=== PATIENT | female | born 1970 | race Caucasian/White ===

== ENCOUNTER 2019-03-11 06:47 | Day surgery (SDC) | payer BC, OTHER ==
[~2019-03-11 06:47] MED LIST: Lactated Ringers 1,000 ML IV SCH; Sodium Chloride 0.9% 10 ML Syringe FLUSH PRN
[2019-03-11] MEDS ORDERED: Propofol 200 MG/20 ML SDV IV ONE (06:48)
[2019-03-11] MEDS ORDERED: Lidocaine 1% PF 2 ML SDV INJECT ONE (06:48)
--- NOTE | 2019-03-11 08:26 | PCM.OPNOTE ---
- General Post-Op/Procedure Note Date of Surgery/Procedure: 03/11/19 Operative Procedure(s): c scope with biopsy Findings: transverse colon polyp Pre Op Diagnosis: screening Post-Op Diagnosis: colon polyp Anesthesia Technique: MAC Primary Surgeon: Luis Arevalo Anesthesia Provider: Mat Bains Pathology: transverse colon polyp Complications: None Condition: Good Free Text/Narrative:: see dictation
--- NOTE | 2019-03-11 10:22 | OR ---
DATE OF OPERATION: 03/11/2019 SURGEON: Luis Arevalo MD PROCEDURE PERFORMED: Colonoscopy with cold forceps biopsy. PREOPERATIVE DIAGNOSIS: Need for screening C-scope. POSTOPERATIVE DIAGNOSIS: Transverse colon polyp. INDICATIONS FOR PROCEDURE: This is a 48-year-old white female who presents for initial screening colonoscopy, she is without symptoms. DESCRIPTION OF PROCEDURE: After an excellent IV sedation was administered, digital rectal exam was performed. No marked abnormality was noted. Flexible colonoscope inserted, advanced to the cecum. The prep was excellent. The following findings were noted. Ascending colon, unremarkable. Transverse colon, proximal portion of this part of the colon, a small 2 mm lesion appearing consistent with a possible early adenomatous polyp, biopsied, submitted for permanent. Descending colon, unremarkable. Sigmoid, unremarkable. Rectum and anus, unremarkable. Colon was deflated as the scope was removed. Patient tolerated the procedure well, was taken to recovery in good condition. Results by letter. /[id number] SUZY/RYAN
== END 2019-03-11 09:10 | disposition home or self-care (01) ==
LOC: FB.SDS 06:47
PROVIDERS: ATTEND Surgery
DX: Z12.11 Encounter for screening for malignant neoplasm of colon (principal); D12.3 Benign neoplasm of transverse colon
CPT/HCPCS: 81025; 88305; J2001; J2704; J7120

== ENCOUNTER 2024-10-03 08:25 | Day surgery (SDC) | payer BC ==
[2024-10-03] MEDS ORDERED: Lidocaine 2% 100 MG/5 ML Syringe IVPUSH ONE (08:26)
[2024-10-03] MEDS ORDERED: Midazolam 1 MG/ML 2 ML SDV IV ONE (08:26)
[2024-10-03] MEDS ORDERED: Propofol 200 MG/20 ML SDV IV ONE (08:26)
[2024-10-03] MEDS ORDERED: Sodium Chloride 0.9% 10 ML Syringe FLUSH PRN (08:30)
[2024-10-03] MEDS: Lactated Ringers 1,000 ML IV SCH (09:12)
[2024-10-03] MEDS: Simethicone Drops 40 MG/0.6 ML 30 ML Bottle ONE (10:53)
== END 2024-10-03 11:58 | disposition home or self-care (01) ==
LOC: FB.SDS 08:25
PROVIDERS: ATTEND Surgery
DX: Z12.11 Encounter for screening for malignant neoplasm of colon (principal); Q43.8 Other specified congenital malformations of intestine; Z86.0101 Personal history of adenomatous and serrated colon polyps; Z79.899 Other long term (current) drug therapy
CPT/HCPCS: 45378; A9270; J2250; J2704; J7120; 00811